=== PATIENT | female | born 1985 | race Two or more races ===

== ENCOUNTER 2025-06-19 22:47 | Emergency (ER) | payer MEDICAID, SELFPAY ==
[2025-06-19 22:48] VITALS: BMI 25.7
[2025-06-19 23:27] VITALS: BP 111/73; PULSE 81; RESP 17; TEMP 37.3; O2SAT 100
--- NOTE | 2025-06-19 23:38 | XR_ITS ---
Examination: CT brain head without contrast. 2-D sagittal coronal reconstructions Date and time of exam:June 19, 2025, 11:50 PM Indications: Ground-level fall today with injury to the head, head pain CTDI: vol (mGy):49.7 DLP: (mGycm):1007 Technique: Multiple CT axial sections of the brain have been obtained, 5 mm slice thickness. Contrast has not been administered. 2-D sagittal, coronal reconstructions have been obtained Low dose protocols were performed. One or more of the following dose reduction techniques were used; automated exposure control, adjustment of the mA and/or KV according to patient size, use of iterative reconstruction technique. Findings: No significant ventricular enlargement. Intra-axial or extra-axial hemorrhage density is not seen. No mass effect or midline shift Basal cisterns are not remarkable. Fourth ventricle is midline. Cranial vault intact. Impression: Negative for acute hemorrhage, mass effect or midline shift
[2025-06-19] MEDS: ONDANSETRON ODT 4 MG TABRAP PO (23:42)
[2025-06-19] MEDS: HYDROcodone/APAP 5/325 TABLET 1 TAB PO (23:42)
--- NOTE | 2025-06-19 23:46 | EDNOTE_ITS ---
ED Head Injury RME/HPI General Chief complaint: Fall Stated complaint: FALL AND HIT HEAD ON WALL Time Seen by Provider: 06/19/25 23:38 Arrival date/time: 06/19/25 22:47 40F with no significant PMH presents to ED for DICKINSON and and N/V after she fell in the shower and hit the back of her head. Patient denies LOC, AMS, seizures, and vision changes,as well as neck pain. Limitations: no limitations Related Data Allergies Allergy/AdvReac Type Severity Reaction Status Date / Time No Known Allergies Allergy Verified 06/19/25 22:48 Review of Systems Review of Systems Systems Reviewed: All systems reviewed, normal except as documented Constitutional Constitutional: Reports headache(s) ENT Ears, Nose, Mouth, and Throat: Reports headache(s) Gastrointestinal Gastrointestinal: Reports as per HPI, Reports nausea and Reports vomiting Neurologic Neurologic: Reports headache(s) Past Medical History Social History SMOKING STATUS: Never smoker ED Exam General Limitations: Present no limitations General appearance: Present alert and in no apparent distress Head Head exam: Present atraumatic Eye Eye exam: Present normal appearance, PERRL and EOMI Neck Neck exam: Present normal inspection, full ROM and trachea midline Chest Chest inspection: Present normal inspection and symmetric chest wall rise Neurological Exam Neurological exam: Present alert and oriented X3 Psychiatric Psychiatric exam: Present normal affect and normal mood Skin Skin exam: Present warm, dry, intact and normal color Course Quality Measures none Orders Category Date Time Status CT head/brain wo con Stat Exams 06/19/25 23:38 Completed HYDROcodone*/APAP 5/325 [Shields 5/325] Med 06/19/25 23:38 Discontinued 1 tab PO X1 ONE Ondansetron Odt [Zofran Odt] Med 06/19/25 23:38 Discontinued 4 mg PO X1 ONE Vital Signs Vital signs: Vital Signs Temperature 99.2 F 06/19/25 23:27 Pulse Rate 81 06/19/25 23:27 Respiratory Rate 17 06/19/25 23:27 Blood Pressure 111/73 06/19/25 23:27 Pulse Oximetry (%) 100 06/19/25 23:27 Oxygen Delivery Method Room Air 06/19/25 23:27 O2 at 100% on RA and WNLs Head Injury MDM Narrative MDM Narrative:: 40F with no significant PMH presents to ED for DICKINSON and and N/V after she fell in the shower and hit the back of her head. Patient denies LOC, AMS, seizures, and vision changes,as well as neck pain. Physical exam reveals normal pupil response and EOM. No gross head trauma. Neck ROM intact. Gait normal. Speech normal. Patient is afebrile, calm, and alert. CT unremarkable. Meds and senior genetic counselor given. Patient data External records reviewed:: None Clinical information provided by:: patient Social determinants that could affect healthcare access:: none Patient has the following chronic illnesses:: none How is presenting disease/condition affected by chronic disease/condition?: no chronic disease Evaluation data The following diagnostics were reviewed and interpreted by me:: radiology exam(s) Lab and/or radiology exams considered but not ordered:: ordered Interpretation Summary: above Medications / Prescriptions Medications or Prescriptions considered but not ordered:: ordered Medication administrations:: Medication Administration History Discontinued Medications Hydrocodone Bitart/Acetaminophen (Hydrocodone/Apap 5/325 Tablet) 1 tab PO X1 ONE Stop: 06/19/25 23:39 Last Admin: 06/19/25 23:42 Dose: 1 tab Documented By: DOUGLAS Ondansetron HCl (Ondansetron Odt 4 Mg Tabrap) 4 mg PO X1 ONE; Protocol Stop: 06/19/25 23:39 Last Admin: 06/19/25 23:42 Dose: 4 mg Documented By: DOUGLAS above Consultations Consultation(s) initiated? (list below): No Diagnosis Differential diagnosis head injury: concussion without loss of consciousness, epidural hematoma, closed head injury, subarachnoid hematoma, postconcussion syndrome and subdural hematoma Most likely diagnosis given after review of the tests above:: [facility] Admission Indicated Admission indicated?: not indicated Admission Request Was there a request for admission?: No Disposition Plan Disposition Plan: Discharge Discharge Attestation Discharge Attestation: The patient and all family members were given an opportunity to ask questions and understood the discharge instructions. Discharge instructions specifically effects, indications for sooner follow up or return to the emergency department, and the expected course of current diagnosis. Patient condition: Stable Discharge Plan Plan Patient Disposition: HOME (Self Care) Discharge Disposition comment: Stable Problem List Clinical Impression: Closed head injury Patient/Caregiver Discharge Instructions Education Materials: ED Head Injury (Adult) Additional Instructions: Please follow-up with PCP within 24-48 hours and return immediately if symptoms worsen. Print Language: Slovenian Stand Alone Forms: Patient Portal Info Letter PA/BILINGUAL STUDENT TUTOR Supervising Physician PA/BILINGUAL STUDENT TUTOR Supervising Physician: Dr. Espinal
[2025-06-20 00:17] VITALS: RESP 14
== END 2025-06-20 00:17 | disposition home or self-care (01) ==
LOC: SERX 06-20 00:21
PROVIDERS: Emergency Provider Emergency Medicine; PCP Family Medicine
DX: S09.90XA Unspecified injury of head, initial encounter (principal); W18.2XXA Fall in (into) shower or empty bathtub, initial encounter; Y93.E1 Activity, personal bathing and showering
CPT/HCPCS: 70450; 99283; Q0162; A9270